=== PATIENT | female | born 1970 | race Caucasian/White ===

== ENCOUNTER 2019-01-12 12:59 | Emergency (ER) | payer BC ==
[2019-01-12 13:15] VITALS: BP 156/72
--- NOTE | 2019-01-12 13:37 | UC ---
Lower Extremity/Ankle HPI - HPI Summary HPI Summary: 48-year-old woman comes in with a chief complaint of left foot pain. Started about 2 weeks ago after walking long distances both in [facility] and [facility]. Pain is the worst on the lateral aspect and the plantar surface near the heel. No specific trauma. Pain is worse with ambulation. Patient's unable to take NSAIDs. Acetaminophen does help some with the pain. Does have a prior stress fracture of this foot. - History of Current Complaint Chief Complaint: UCLowerExtremity Stated Complaint: LEFT FOOT Time Seen by Provider: 01/12/19 13:11 Hx Last Menstrual Period: no periods Pain Intensity: 5 - Allergies/Home Medications Allergies/Adverse Reactions: Allergies Allergy/AdvReac Type Severity Reaction Status Date / Time amoxicillin Allergy Diarrhea Verified 01/12/19 13:16 Sulfa (Sulfonamide Allergy Rash Verified 01/12/19 13:16 Antibiotics) Home Medications: Home Medications Cholecalciferol TAB* [Vitamin D TAB*] 1,000 unit PO DAILY 01/12/19 [History Confirmed 01/12/19] Vitamin B Complex CAP* [B Complex CAP*] 1 cap PO DAILY 01/12/19 [History Confirmed 01/12/19] azaTHIOprine [Imuran] 100 mg PO DAILY 01/12/19 [History Confirmed 01/12/19] PMH/Surg Hx/FS Hx/Imm Hx Previously Healthy: Yes GI/ History: Gastroesophageal Reflux - Surgical History Surgical History: Yes Surgery Procedure, Year, and Place: Uterine Ablations, 2013 2008; L4 L5 Laminectomy, 2012, [facility]; L5 S1 Laminectomy, 2009, [place]; Right Rotator Cuff, ~2000, [place]; Bone Lesion, early , [facility]. Right shoulder September 2018 - Family History Known Family History: Positive: Other - no DVTs, + UC & Crohns. Negative: Diabetes - Social History Alcohol Use: Occasionally Substance Use Type: None Smoking Status (MU): Never Smoked Tobacco Review of Systems All Other Systems Reviewed And Are Negative: Yes Constitutional: Positive: Negative Skin: Positive: Negative Eyes: Positive: Negative ENT: Positive: Negative Respiratory: Positive: Negative Cardiovascular: Positive: Negative Gastrointestinal: Positive: Negative Motor: Positive: Negative Neurovascular: Positive: Negative Musculoskeletal: Positive: Other: - see hpi Neurological: Positive: Negative Psychological: Positive: Negative Is Patient Immunocompromised?: No Physical Exam Triage Information Reviewed: Yes Appearance: Well-Appearing, No Pain Distress, Well-Nourished Vital Signs: Initial Vital Signs Temp 97.4 F 01/12/19 13:10 Pulse 75 01/12/19 13:10 Resp 18 01/12/19 13:10 BP 156/72 01/12/19 13:10 Pulse Ox 100 01/12/19 13:10 Vital Signs Reviewed: Yes Eye Exam: Normal Eyes: Positive: Conjunctiva Clear Neck: Positive: Supple Respiratory: Positive: No respiratory distress Musculoskeletal: Positive: Other: - Left foot is tender to palpation on the lateral aspect from the proximal fifth metatarsal back to the heel. It's also tender to palpation in the plantar aspect in the same distribution. Achilles tendon is intact. Normal capillary refill no sensation deficit normal dorsalis pedis pulse. Foot ankle toes have full range of motion ankle is nontender to palpation. Neurological: Positive: Alert Psychological: Positive: Age Appropriate Behavior Skin Exam: Normal Lower Extremity Course/Dx - Course Course Of Treatment: Patient Name: ASHIA FINK Medical Record#: [id number] Ordering Physician: Otis Guthrie MD Acct.#: [id number] : 1970 Age: 48 Sex: F Location: [facility] Exam Date: 01/12/191310 ADM Status: REG ER Order Information: FOOT LEFT 3+ VWS Accession Number: [id number] CPT: 82704 HISTORY: pain lateral foot . COMPARISONS: February 23, 2012 VIEWS: 3, Frontal, lateral, and oblique views of the left foot FINDINGS: BONE DENSITY: Normal. BONES: There is no displaced fracture. There are posterior and plantar calcaneal enthesophytes. There is evidence of previous trauma at the base of the fifth metatarsal. JOINTS: There is mild osteoarthritis of the first MTP joint. ALIGNMENT: There is no dislocation. SOFT TISSUES: Unremarkable. OTHER FINDINGS: None. IMPRESSION: NO ACUTE OSSEOUS INJURY. IF SYMPTOMS PERSIST, RECOMMEND REPEAT IMAGING. <Electronically signed by Gurpreet Kinney MD in [place]> 08/14/19 1339 I discussed the x-rays with the patient. Patient went home with a disc of the x -rays as she is going to be following up with her orthopedist in [place] on January 24, 2019. I recommended icing the area especially after activity. Patient cannot take NSAIDs social continue the acetaminophen as needed. She did not want anything stronger for the pain. Also recommended arch support and not going barefoot. - Differential Dx/Diagnosis Provider Diagnosis: Left foot pain Discharge - Sign-Out/Discharge Documenting (check all that apply): Patient Departure All imaging exams completed and their final reports reviewed: Yes - Discharge Plan Condition: Stable Disposition: HOME Patient Education Materials: Plantar Fasciitis (ED), Plantar Fasciitis Exercises (ED) Referrals: Sharee Flores MD [Primary Care Provider] - Additional Instructions: FOLLOW UP WITH YOUR ORTHOPEDIST ON 01/24/19 SCHEDULED. GET RECHECKED SOONER IF YOUR CONDITION WORSENS OR ANY QUESTIONS OR CONCERNS. - Billing Disposition and Condition Condition: STABLE Disposition: Home
== END 2019-01-12 14:01 | disposition home or self-care (01) ==
LOC: UCCORT 12:59
DX: M79.672 Pain in left foot (principal); Z88.0 Allergy status to penicillin; Z88.2 Allergy status to sulfonamides; M19.072 Primary osteoarthritis, left ankle and foot
CPT/HCPCS: 99211; G0463